=== PATIENT | female | born 1955 | race Caucasian/White ===

== ENCOUNTER → 2018-05-31 15:32 | Outpatient (CLI) | payer BC, SELFPAY ==
--- NOTE | 2018-05-31 15:50 | BD_ITS ---
STUDY: DUAL ENERGY X-RAY ABSORPTIOMETRY / DXA REASON FOR EXAM: Female, 62 years old. The patient is postmenopausal. Loss of height. TECHNIQUE: Bone Mineral Density (BMD) measurements of lumbar spine and bilateral hips were obtained. COMPARISON: None. FINDINGS: Lumbar Spine (L1-L4): g/cm2 (0.907) / T-score (-2.4) / Z-score (-1.0) Findings are suggestive of osteopenia with a high fracture risk. Left Femur Total: g/cm2 (0.885) / T-score (-1.0) / Z-score (0.1) Left Femoral Neck: g/cm2 (0.852) / T-score (-1.3) / Z-score (0.1) Right Femur Total: g/cm2 (0.902) / T-score (-0.8) / Z-score (0.3) Right Femoral Neck: g/cm2 (0.840) / T-score (-1.4) / Z-score (0.0) BD/Dexa Bone Density Study IMPRESSION: The patient is considered osteopenic as outlined below according to World Geremias Organization (WHO) criteria with a high fracture risk. . Reference Information: The T-score is the number of standard deviations above or below the standard which is normal for young adults at their peak bone mineral density. The World Health Organization (WHO) interprets the T-scores as follows: Above -1 Normal bone density Between -1 and -2.5 Osteopenia Equal to / or below -2.5 Osteoporosis As a practical clinical guideline, osteopenia may be graded as follows: Mild -1 through -1.5 Moderate -1.6 through -2.0 Severe -2.1 through -2.4 The Z-score is the number of standard deviations above or below age-matched controls. A Z-score of less than -1.5 would be considered abnormal. References: 1. NIH Osteoporosis and Related Bone Diseases http://www.osteo.org 2. International Society for Clinical Densitometry http://www.iscd.org 3. National Osteoporosis Foundation http://www.nof.org Electronically Signed: Sebastian Ryder MD at 11:00 EST Tel [phone], Service support ,
--- NOTE | 2018-05-31 16:09 | BI_ITS ---
MAMMOGRAPHY - BILATERAL SCREENING REASON FOR EXAM: Female, 62 years old. Routine annual screening examination. PERTINENT HISTORY: Non-contributory. TECHNIQUE: Digital bilateral breast jhoan (3D mammographic acquisition) in the CC and MLO projections. 2-D mediolateral oblique (MLO) and craniocaudad (CC) views of both breasts were obtained. CAD: Full Field Digital Mammography with Computer Added Detection was performed. COMPARISON: No comparison mammograms available at this time. If any prior films become available, an addendum to this report can be generated. FINDINGS: Breast Composition: The breasts are heterogeneously dense, which may obscure small masses. There are no dominant masses or suspicious calcifications. No other significant abnormalities are identified. BI/SCREENING MAMM (CAD), BILAT IMPRESSION: Negative screening mammogram. Yearly followup mammogram recommended. (A) ASSESSMENT CATEGORY: BIRADS Category 1: Negative. A letter regarding these results will be sent to the patient by the facility within 30 days. Approximately 10% of breast cancers are not detected by mammography. A normal mammogram should not delay biopsy of a clinically suspicious abnormality. [id number] Electronically Signed: Sebastian Ryder MD at 11:25 EST Tel [phone], Service support ,
== END ==
PROVIDERS: PCP Internal Medicine; Visit Provider Internal Medicine
DX: Z12.31 Encounter for screening mammogram for malignant neoplasm of breast (principal); Z78.0 Asymptomatic menopausal state
CPT/HCPCS: 77063; 77067; 77080

== ENCOUNTER 2019-04-01 14:01 | Emergency (ER) | payer OTHER, SELFPAY ==
[2019-04-01 14:02] VITALS: PULSE 168; RESP 19; TEMP 36.6; O2SAT 99; BMI 23.1
--- NOTE | 2019-04-01 14:07 | NURSING ---
NO OLD EKGS
--- NOTE | 2019-04-01 14:12 | EKG12_ITS ---
Test Reason : REPEAT Blood Pressure : / mmHG Vent. Rate : 097 BPM Atrial Rate : 097 BPM P-R Int : 172 ms QRS Dur : 082 ms QT Int : 356 ms P-R-T Axes : 075 042 064 degrees QTc Int : 452 ms Normal sinus rhythm Normal ECG Confirmed by ALEXIA CORTEZ, KATIE ([id number]), purchasing expeditor SHAHIDA LEVY ([id number]) on 04/04/2019 10:15:14 AM Referred By: ZOLTAN Confirmed By:KATIE HALE MD
--- NOTE | 2019-04-01 14:14 | RAD_ITS ---
STUDY: X-RAY CHEST REASON FOR EXAM: Female, 63 years old. Palpitations TECHNIQUE: AP COMPARISON: None. FINDINGS: EKG leads project over the chest. The lungs are clear but hyper expanded. There is no demonstrated pleural abnormality. Normal size heart. Normal mediastinum and kriss. Normal visualized pulmonary arteries. Normal visualized aortic arch and descending thoracic aorta. Normal visualized thoracic spine. Normal visualized ribs, clavicles, and shoulders. There is no demonstrated abnormality of the visualized soft tissue structures of the upper abdomen. RAD/Chest 1 View (Portable) IMPRESSION: Nonacute portable x-ray examination of the chest. Electronically Signed: Bartolo Gonzalez MD (Brooks) at 14:31 EDT , Service support ,
[2019-04-01 14:19] LABS: Absolute Lymphocyte Count 2.36 X10^3/uL (0.83-4.51); Absolute Neutrophil Count 5.9 X10^3/uL (2.0-7.7); Basophil# 0.04 X10^3/uL; Basophil% 0.4 % (0-1); Eosinophil# 0.16 X10^3/uL; Eosinophils% 1.7 % (0-5); Hematocrit 48.4 % (37-47); Hemoglobin 15.9 g/dL (12.0-15.0); Lymphocyte # 2.36 X10^3/ul (4.0); Lymphocyte % 25.3 % (19-41); Mean Corp Hgb Conc 32.9 g/dL (32-36); Mean Corpuscular Hgb 30.1 pg (27.0-32.0); Mean Corpuscular Volume 91.7 fL (81-99); Mean Platelet Vol. 9.8 fl (6.2-12.0); Monocyte# 0.87 X10^3/uL; Monocyte% 9.3 % (0-10); NRBC Flagged by Analyzer 0 % (0-5); Neutrophil # 5.86 X10^3/uL (2.7-7.7); Platelet Count 272 K/mm3 (150-450); RBC Distribution Width CV 12.4 % (11.6-14.6); RBC Distribution Width SD 41.8 fl (35.1-43.9); Red Blood Count 5.28 M/mm3 (4.2-5.4); White Blood Count 9.3 K/mm3 (4.4-11.0)
--- NOTE | 2019-04-01 14:26 | ED.RN ---
1410- DR. CROCKER PROVIDED A VALSALVA MANEUVER TO LOWER HR NATURALLY. PT HAD A PAUSE AND THEN HAD IRREGULAR BEATS WITH A RETURN OF SR HR AT A RATE OF 104
[2019-04-01 15:03] VITALS: BP 118/76; PULSE 95; RESP 16; O2SAT 98
[2019-04-01 15:03] LABS: Anion Gap 8 (5-15); BUN 19 mg/dL (7-18); BUN/Creat Ratio 21.5 RATIO (10-20); Calcium,Total 9.3 mg/dL (8.5-10.1); Chloride 105 mmol/L (98-107); Creatinine, Serum 0.88 mg/dL (0.55-1.02); EST Glomerular Filtration Rate 68 mL/min (>60); Est Glom Filt Rate - Afr Amer 83 mL/min (>60); Estimated Creatinine Clearance 58.12 ml/min; Glucose 109 mg/dL (74-106); Magnesium 2.1 mg/dL (1.6-2.6); Sodium Level 137 mmol/L (136-145); Thyroid Stim Hormone (TSH) 3.29 uIU/mL (0.358-3.74)
--- NOTE | 2019-04-01 15:43 | ED.DCSUM_ITS ---
- ER Visit Summary Date of Service: 04/01/19 Chief Complaint: Palpitations History of Present Illness: The patient is a 63 F who is working in her garden for the last hour has felt her heart racing. She tells me that when she was younger she was told she had a murmur. Later in life she had an echocardiogram that was normal. She tells me she saw a events administrative assistant at [facility] in the past and was told not to worry about her murmur. She is otherwise a very healthy individual. She is physically fit. She tells me that she has had palpitations for 55 years. She states that typically they have been short-lived lasting seconds to possibly 10 minutes. Sometimes she may go 6 months without an episode sometimes it may be twice in a week. She states that the past few years she is noticed that they have been more frequently. She is never worn a Holter monitor. Physical Examination: Afebrile heart rate 178 blood pressure stable Gen: Well-nourished well-developed Head: Normocephalic atraumatic Eyes: Perrl EOMI ENT: TMs clear no rhinorrhea moist mucous membranes Neck: Supple no lymphadenopathy no JVD nontender CVS: Regular rate tachycardic rhythm no murmurs normal S1-S2 Respiratory: No distress clear to auscultation bilaterally chest nontender Abdomen: Soft nontender nondistended normal bowel sounds no masses Back: Nontender Extremity: Nontender no edema Skin: Normal color no rash Neuro: alert orientated ?3 CN II-XII intact normal strength sensation reflexes gait cerebellar Psych: Normal affect normal mood Test Results: EKG demonstrated SVT rhythm at a rate of 172. Repeat EKG shows a sinus rhythm at a rate of 97. Basic labs including magnesium and TSH and troponin were negative. Emergency Department Course and Treatment: Using a modified Valsalva technique using a syringe the patient converted to sinus rhythm. Spoke with cardiology recommend starting the patient on Cardizem 120 she will follow-up with cardiology return if worsening or concerns. Impression: 1. Ventricular tachycardia 2. Modified Valsalva cardioversion This note was generated with [employer] software. It may contain incorrect words, spelling, and punctuation that were not noted in review of the chart prior to signing ED Disposition - Plan for ED Patient: Disposition: Home or Assisted Living Instructions: Pat (P.A.T.) Prescriptions: Diltiazem CD [Cardizem CD] 120 mg PO DAILY #30 cap Prescription Printed Referrals: Owen Lui MD [STAFF PHYSICIAN] - (call to arrange follow up with cardiology)
[2019-04-01 15:56] VITALS: BP 107/67; PULSE 97; RESP 18; O2SAT 97
== END 2019-04-01 15:57 | disposition home or self-care (01) ==
PROVIDERS: Emergency Provider Emergency Medicine; Family Provider Internal Medicine; PCP Internal Medicine
DX: I47.1 Supraventricular tachycardia (principal)
CPT/HCPCS: 71045; 80048; 83735; 84443; 84484; 85025; 93005; 99285; J7030; A4216

== ENCOUNTER → 2019-09-14 12:53 | Outpatient (CLI) | payer MEDICARE, OTHER, SELFPAY ==
[2019-09-07 14:13] VITALS: BMI 21.6
--- NOTE | 2019-09-14 12:54 | ECHOD_ITS ---
Reason For Study: ARRHYTHMIA Procedure This was a 2D Doppler, Color Flow transthoracic echocardiogram. The exam was of adequate technical quality. Exam performed in department. Left Ventricle Normal LV size. Left ventricular systolic function is normal. The estimated ejection fraction is 65 %. No evidence for diastolic dysfunction. No regional wall motion abnormalities noted. Right Ventricle Normal RV size. Normal systolic function. Atria Normal left atrium. Normal right atrium. No doppler evidence for ASD. Mitral Valve There is no mitral annular calcification. Normal mitral valve. Trivial mitral valve insufficiency. Tricuspid Valve Normal tricuspid valve. Trivial tricuspid valve insufficiency. Right ventricular systolic pressure estimated to be 22 mmHg. Aortic Valve Trisinus/trileaflet aortic valve. Mild diffuse aortic valve thickening. Moderate focal aortic valve calcification. Mild to moderate aortic stenosis. Pulmonic Valve The pulmonic valve is not well visualized. Trivial pulmonic valve insufficiency. Great Vessels Normal sized aortic root. Pericardium/Pleural No pericardial effusion. MMode/2D Measurements & Calculations LVIDd: 4.1 cm IVSd: 0.75 cm LVOT diam: 1.8 cm LVIDs: 2.9 cm LVPWd: 0.72 cm LVOT area: 2.5 cm2 RVDd: 3.1 cm FS: 30.7 % Ao root diam: 3.4 cm LAV(MOD-bp): 38.9 ml LA A4 area: 14.4 cm2 LAV(MOD-bp) Indexed: 23.5 ml/m2 LAV(MOD-sp2): 37.7 ml LAV(MOD-sp4): 36.9 ml LA dimension(2D): 3.7 cm RA A4 area: 11.9 cm2 Time Measurements MV dec time: 0.21 sec Doppler Measurements & Calculations MV E max jw: 62.6 cm/sec Lat Peak E' Jw: 13.4 cm/sec Med Peak E' Jw: 8.5 cm/sec MV A max jw: 56.4 cm/sec E/E' lat: 4.7 E/E' med: 7.4 MV E/A: 1.1 Ao V2 max: 187.8 cm/sec LV V1 max: 108.6 cm/sec PA V2 max: 107.7 cm/sec Ao max P.1 mmHg LV V1 max P.7 mmHg JU(V,D): 1.5 cm2 PI end-d jw: 105.2 cm/sec TR max jw: 215.9 cm/sec TR max P.6 mmHg Interpretation Summary Left ventricular systolic function is normal. The estimated ejection fraction is 65 %. Trivial mitral valve insufficiency. Trivial tricuspid valve insufficiency. Mild to moderate aortic stenosis. Trivial pulmonic valve insufficiency. Right ventricular systolic pressure estimated to be 22 mmHg. No evidence for diastolic dysfunction. Ordering Physician: Michele Bryson Referring Physician: ALEIDA CARBALLO Performed By: Alisia Hopkins, RDCS, RVT
== END ==
PROVIDERS: PCP Internal Medicine; Referring Provider Internal Medicine Cardiovascular Disease; Visit Provider Internal Medicine Cardiovascular Disease
DX: I47.1 Supraventricular tachycardia (principal)
CPT/HCPCS: 93306

== ENCOUNTER → 2020-05-14 15:17 | Outpatient (CLI) | payer MEDICARE, OTHER, SELFPAY ==
[2020-02-29 10:33] VITALS: BMI 21.7
--- NOTE | 2020-05-14 15:20 | BI_ITS ---
MAMMOGRAPHY - BILATERAL SCREENING REASON FOR EXAM: Female, 64 years old. Routine annual screening examination. PERTINENT HISTORY: Non-contributory. TECHNIQUE: Digital bilateral breast sandra (3D mammographic acquisition) in the CC and MLO projections. 2-D mediolateral oblique (MLO) and craniocaudad (CC) views of both breasts were obtained. CAD: Full Field Digital Mammography with Computer Added Detection was performed. COMPARISON: Comparison is made with prior study dated 05/31/2018. FINDINGS: Breast Composition: The breasts are extremely dense, which lowers the sensitivity of mammography. There are no dominant masses or suspicious calcifications. No other significant abnormalities are identified. There has been no significant change since the prior study. BI/SCREEN MAMM (CAD) W/SANDRA BILAT IMPRESSION: Stable bilateral screening mammogram. Yearly follow-up mammogram recommended. (A) ASSESSMENT CATEGORY: BIRADS Category 1: Negative. A letter regarding these results will be sent to the patient by the facility within 30 days. Approximately 10% of breast cancers are not detected by mammography. A normal mammogram should not delay biopsy of a clinically suspicious abnormality. [id number] Electronically Signed: Sebastian Ryder, at 8:21 EST , Service support ,
--- NOTE | 2020-05-14 15:22 | BD_ITS ---
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 COMPARISON: Comparison is made with prior study dated 05/31/2019. FINDINGS: Lumbar Spine (L1-L4): g/cm2 (0.893) / T-score (-2.4) / Z-score (-0.8) Findings are suggestive of osteopenia with a high fracture risk. Left Femur Total: g/cm2 (0.848) / T-score (-1.3) / Z-score (0.0) Left Femoral Neck: g/cm2 (0.820) / T-score (-1.6) / Z-score (-0.1) Right Femur Total: g/cm2 (0.867) / T-score (-1.1) / Z-score (0.1) Right Femoral Neck: g/cm2 (0.828) / T-score (-1.5) / Z-score (0.0) The T-Scores on the most recent prior examination were: Lumbar Spine (L1-L4): There has been worsening of bone density since the previous examination. Left Femur Total: which represents a worsening of 4.2%. Right Femur Total: which represents a worsening of 3.9%. BD/Dexa Bone Density Study IMPRESSION: The patient is considered osteopenic as outlined below according to World Geremias Organization (WHO) criteria with a high fracture risk. There has been worsening of bone density since the previous examination. Reference Information: The T-score is the number of standard deviations above or below the standard which is normal for young adults at their peak bone mineral density. The World Health Organization (WHO) interprets the T-scores as follows: Above -1 Normal bone density Between -1 and -2.5 Osteopenia Equal to / or below -2.5 Osteoporosis As a practical clinical guideline, osteopenia may be graded as follows: Mild -1 through -1.5 Moderate -1.6 through -2.0 Severe -2.1 through -2.4 The Z-score is the number of standard deviations above or below age-matched controls. A Z-score of less than -1.5 would be considered abnormal. References: 1. NIH Osteoporosis and Related Bone Diseases www osteo.org 2. International Society for Clinical Densitometry www iscd.org 3. National Osteoporosis Foundation www nof.org Electronically Signed: Sebastian Ryder, at 10:55 EST , Service support ,
== END ==
PROVIDERS: PCP Internal Medicine; Referring Provider Internal Medicine; Visit Provider Internal Medicine
DX: Z12.31 Encounter for screening mammogram for malignant neoplasm of breast (principal); Z78.0 Asymptomatic menopausal state
CPT/HCPCS: 77063; 77067; 77080

== ENCOUNTER → 2021-05-16 15:02 | Outpatient (CLI) | payer MEDICARE, OTHER, SELFPAY ==
--- NOTE | 2021-05-16 15:51 | BI_ITS ---
MAMMOGRAPHY - BILATERAL SCREENING 3-D TOMOSYNTHESIS REASON FOR EXAM: Female, 65 years old. Routine screening PERTINENT HISTORY: No significant family history. TECHNIQUE: 2-D mammograms and 3-D Tomosynthesis of the breast (s) were performed. CAD was performed. COMPARISON: 07/14/2019 FINDINGS: The breast composition is heterogeneously dense that can obscure small breast masses. Scattered benign calcifications are seen. No dense spiculated masses or suspicious microcalcifications are identified. No architectural distortion is identified. There is no skin thickening or retraction. There has been no significant change since the prior study. BI/SCRN MAMM (CAD)W/SANDRA BILAT IMPRESSION: No mammographic signs of malignancy. Routine yearly mammograms recommended. ASSESSMENT CATEGORY: BIRADS Category 2: Benign. A letter regarding these results will be sent to the patient by the facility within 30 days. FOLLOW UP RECOMMENDATION: Yearly follow up mammogram recommended. (A) Approximately 10% of breast cancers are not detected by mammography. A normal mammogram should not delay biopsy of a clinically suspicious abnormality. Electronically Signed: Simone Chang MD at 12:14 EST , Service support ,
== END ==
PROVIDERS: PCP Internal Medicine; Referring Provider Internal Medicine; Visit Provider Internal Medicine
DX: Z12.31 Encounter for screening mammogram for malignant neoplasm of breast (principal)
CPT/HCPCS: 77063; 77067

== ENCOUNTER → 2022-05-12 | Outpatient (CLI) | payer MEDICARE, OTHER, SELFPAY ==
--- NOTE | 2022-05-12 14:58 | ECHOD_ITS ---
Reason For Study: AORTIC VALVE STENOSIS Procedure This was a 2D Doppler, Color Flow transthoracic echocardiogram. The study was technically difficult. Exam performed in department. Left Ventricle Normal LV size. Left ventricular systolic function is normal. The estimated ejection fraction is 65 %. No evidence for diastolic dysfunction. No regional wall motion abnormalities noted. Right Ventricle Normal RV size. Normal systolic function. Atria Normal left atrium. Normal right atrium. No doppler evidence for ASD. Mitral Valve There is no mitral annular calcification. Normal mitral valve. Trivial mitral valve insufficiency. Tricuspid Valve Normal tricuspid valve. Mild tricuspid valve insufficiency. Right ventricular systolic pressure estimated to be 23 mmHg. Aortic Valve Trisinus/trileaflet aortic valve. Moderate focal aortic valve calcification. Mild aortic stenosis. Pulmonic Valve The pulmonic valve is not well visualized. Mild (1+) eccentric pulmonic valve insufficiency. Great Vessels Normal sized aortic root. Pericardium/Pleural No pericardial effusion. MMode/2D Measurements & Calculations RVDd: 2.9 cm LVOT diam: 1.9 cm Ao root diam: 2.5 cm LVOT area: 2.7 cm2 LAV(MOD-bp): 43.1 ml LA dimension(2D): 3.1 cm LA A4 area: 14.5 cm2 LAV(MOD-bp) Indexed: 25.9 ml/m2 LAV(MOD-sp2): 41.9 ml LAV(MOD-sp4): 35.8 ml RA A4 area: 11.6 cm2 Time Measurements MV dec time: 0.20 sec Doppler Measurements & Calculations MV E max jw: 81.7 cm/sec Lat Peak E' Jw: 15.5 cm/sec Med Peak E' Jw: 9.3 cm/sec MV A max jw: 59.6 cm/sec E/E' lat: 5.3 E/E' med: 8.8 MV E/A: 1.4 Ao V2 max: 204.1 cm/sec LV V1 max: 102.2 cm/sec MV dec slope: 412.6 cm/sec2 Ao max P.3 mmHg LV V1 max P.2 mmHg Ao V2 mean: 133.2 cm/sec LV V1 mean P.6 mmHg Ao mean P.0 mmHg LV V1 mean: 78.2 cm/sec Ao V2 VTI: 40.4 cm LV V1 VTI: 24.8 cm JU(I,D): 1.7 cm2 JU(V,D): 1.3 cm2 SV(LVOT): 66.7 ml PA V2 max: 131.0 cm/sec PI dec slope: 181.6 cm/sec2 TR max jw: 222.4 cm/sec TR max P.8 mmHg ECHO/Echo Complete Interpretation Summary The study was technically difficult. Left ventricular systolic function is normal. The estimated ejection fraction is 65 %. Trivial mitral valve insufficiency. Mild tricuspid valve insufficiency. Moderate focal aortic valve calcification. Mild aortic stenosis. Mild (1+) eccentric pulmonic valve insufficiency. Right ventricular systolic pressure estimated to be 23 mmHg. No evidence for diastolic dysfunction. Ordering Physician: Michele rByson Referring Physician: Maia Basilio Performed By: Betty Gold, RDCS, RVT
== END | disposition home or self-care (01) ==
LOC: CVS 14:57
PROVIDERS: PCP Internal Medicine; Referring Provider Internal Medicine Cardiovascular Disease; Visit Provider Internal Medicine Cardiovascular Disease
DX: I47.1 Supraventricular tachycardia (principal); I06.2 Rheumatic aortic stenosis with insufficiency; R01.1 Cardiac murmur, unspecified; E78.2 Mixed hyperlipidemia
CPT/HCPCS: 93306

== ENCOUNTER → 2023-09-09 | Outpatient (CLI) | payer MEDICARE, OTHER, SELFPAY ==
--- NOTE | 2023-09-09 12:40 | BD_ITS ---
STUDY: DUAL ENERGY X-RAY ABSORPTIOMETRY / DXA REASON FOR EXAM: Female, 68 years old. [id number] TECHNIQUE: Bone Mineral Density (BMD) measurements of lumbar spine and bilateral hips were obtained. COMPARISON: Comparison is made with prior study dated May 14, 2020. FINDINGS: Lumbar Spine (L1-L4): g/cm2 (0.791) / T-score (-2.6) / Z-score (-0.5) Findings are suggestive of osteoporosis with a high fracture risk. Left Femur Total: g/cm2 (0.798) / T-score (-1.2) / Z-score (0.3) Left Femoral Neck: g/cm2 (0.633) / T-score (-1.9) / Z-score (-0.2) Right Femur Total: g/cm2 (0.841) / T-score (-0.8) / Z-score (0.6) Right Femoral Neck: g/cm2 (0.656) / T-score (-1.7) / Z-score (0.0) The T-Scores on the most recent prior examination were: Lumbar Spine (L1-L4): There has been improvement of bone density since the previous examination. Left Femur Total: which represents an improvement of 1.4%. Right Femur Total: which represents an improvement of 4.4%. BD/Dexa Bone Density Study IMPRESSION: The patient is considered osteoporotic as outlined below according to World Geremias Organization (WHO) criteria with a high fracture risk. There has been worsening of bone density since the previous examination. Reference Information: The T-score is the number of standard deviations above or below the standard which is normal for young adults at their peak bone mineral density. The World Health Organization (WHO) interprets the T-scores as follows: Above -1 Normal bone density Between -1 and -2.5 Osteopenia Equal to / or below -2.5 Osteoporosis As a practical clinical guideline, osteopenia may be graded as follows: Mild -1 through -1.5 Moderate -1.6 through -2.0 Severe -2.1 through -2.4 The Z-score is the number of standard deviations above or below age-matched controls. A Z-score of less than -1.5 would be considered abnormal. References: 1. NIH Osteoporosis and Related Bone Diseases www osteo.org 2. International Society for Clinical Densitometry www iscd.org 3. National Osteoporosis Foundation www nof.org Electronically Signed: Sebastian Ryder MD at 11:21 EDT ,
--- NOTE | 2023-09-09 12:40 | BI_ITS ---
MAMMOGRAPHY - BILATERAL SCREENING REASON FOR EXAM: Female, 68 years old. Routine annual screening examination. PERTINENT HISTORY: Non-contributory. TECHNIQUE: Digital bilateral breast sandra (3D mammographic acquisition) in the CC and MLO projections. 2-D mediolateral oblique (MLO) and craniocaudad (CC) views of both breasts were obtained. CAD: Full Field Digital Mammography with Computer Added Detection was performed. COMPARISON: Comparison is made with prior study dated May 16, 2021 and May 14, 2020. FINDINGS: Breast Composition: The breasts are extremely dense, which lowers the sensitivity of mammography. There are no dominant masses or suspicious calcifications. No other significant abnormalities are identified. There has been no significant change since the prior study. BI/SCRN MAMM (CAD)W/SANDRA BILAT IMPRESSION: Stable bilateral screening mammogram. Yearly follow-up mammogram recommended. (A) ASSESSMENT CATEGORY: BIRADS Category 1: Negative. A letter regarding these results will be sent to the patient by the facility within 30 days. Approximately 10% of breast cancers are not detected by mammography. A normal mammogram should not delay biopsy of a clinically suspicious abnormality. [id number] Electronically Signed: Sebastian Ryder MD at 15:45 EDT ,
== END | disposition home or self-care (01) ==
PROVIDERS: PCP Internal Medicine; Referring Provider Internal Medicine; Visit Provider Internal Medicine
DX: Z12.31 Encounter for screening mammogram for malignant neoplasm of breast (principal); Z78.0 Asymptomatic menopausal state
CPT/HCPCS: 77063; 77067; 77080

== ENCOUNTER → 2023-10-12 | Outpatient (CLI) | payer MEDICARE, OTHER, SELFPAY ==
--- NOTE | 2023-10-12 13:53 | ECHOD_ITS ---
Reason For Study: AORTIC STENOSIS Procedure This was a 2D Doppler, Color Flow transthoracic echocardiogram. The study was technically difficult. Exam performed in department. Left Ventricle Normal LV size. Left ventricular systolic function is normal. The left ventricular ejection fraction is 65 %. Stage 2 diastolic dysfunction. No regional wall motion abnormalities noted. Right Ventricle Normal RV size. Normal systolic function. Atria Normal left atrium. Normal right atrium. Mitral Valve Normal mitral valve. Tricuspid Valve Normal tricuspid valve. Mild tricuspid valve insufficiency. Aortic Valve Trisinus/trileaflet aortic valve. Mild focal aortic valve calcification. Peak aortic valve gradient 21 mmHg. Mean aortic valve gradient 12 mmHg. Mild aortic stenosis. Great Vessels Normal aortic root. The pulmonary artery is normal size. Normal inferior vena cava. Pericardium/Pleural No pericardial effusion. MMode/2D Measurements & Calculations LVIDd: 4.1 cm IVSd: 0.87 cm LVOT diam: 1.9 cm LVIDs: 2.5 cm LVPWd: 0.83 cm LVOT area: 2.8 cm2 RVDd: 3.4 cm FS: 39.3 % Ao root diam: 2.5 cm LAV(MOD-bp): 43.1 ml LVAd ap4: 22.2 cm2 LAV(MOD-bp) Indexed: 26.0 ml/m2 LVLd ap4: 7.2 cm LAV(MOD-sp2): 51.4 ml EDV(MOD-sp4): 54.5 ml LAV(MOD-sp4): 37.3 ml EDV(sp4-el): 57.8 ml LVAs ap4: 10.0 cm2 LVLs ap4: 5.6 cm ESV(MOD-sp4): 15.6 ml ESV(sp4-el): 15.0 ml EF(MOD-sp4): 71.3 % EF(sp4-el): 74.1 % SV(MOD-sp4): 38.9 ml SV(MOD-sp2): 30.5 ml LVAd ap2: 19.2 cm2 LVLd ap2: 7.0 cm EDV(MOD-sp2): 46.0 ml EDV(sp2-el): 44.8 ml LVAs ap2: 10.0 cm2 LVLs ap2: 5.5 cm ESV(MOD-sp2): 15.5 ml ESV(sp2-el): 15.3 ml EF(MOD-sp2): 66.3 % SV(sp4-el): 42.8 ml LA A4 area: 15.2 cm2 LA dimension(2D): 3.4 cm TAPSE: 1.9 cm RA A4 area: 11.4 cm2 Time Measurements MV dec time: 0.16 sec Doppler Measurements & Calculations MV E max jw: 80.0 cm/sec Lat Peak E' Jw: 11.2 cm/sec Med Peak E' Jw: 14.5 cm/sec MV A max jw: 62.6 cm/sec E/E' lat: 7.2 E/E' med: 5.5 MV E/A: 1.3 MV dec slope: 487.4 cm/sec2 Ao V2 max: 228.6 cm/sec LV V1 max: 138.1 cm/sec Ao max P.0 mmHg LV V1 max P.6 mmHg Ao V2 mean: 159.2 cm/sec LV V1 mean P.7 mmHg Ao mean P.5 mmHg LV V1 mean: 103.8 cm/sec Ao V2 VTI: 53.3 cm LV V1 VTI: 35.6 cm AV (velocity ratio): 0.67 JU(I,D): 1.9 cm2 JU(V,D): 1.7 cm2 SV(LVOT): 100.6 ml PA V2 max: 106.7 cm/sec TR max jw: 216.9 cm/sec PA max PG (full): 2.2 mmHg TR max P.8 mmHg ECHO/Echo Complete Interpretation Summary Normal LV size. Left ventricular systolic function is normal. The left ventricular ejection fraction is 65 %. Stage 2 diastolic dysfunction. Mild tricuspid valve insufficiency. Mean aortic valve gradient 12 mmHg. Mild aortic stenosis. Ordering Physician: Tashi Galeana Referring Physician: Maia Basilio M.D. Performed By: Merry Laguerre RDCS
== END | disposition home or self-care (01) ==
LOC: CVS 13:48
PROVIDERS: PCP Internal Medicine; Referring Provider Internal Medicine Cardiovascular Disease; Visit Provider Internal Medicine Cardiovascular Disease
DX: I06.2 Rheumatic aortic stenosis with insufficiency (principal)
CPT/HCPCS: 93306

== ENCOUNTER → 2024-09-20 | Outpatient (CLI) | payer MEDICARE, OTHER, SELFPAY ==
--- NOTE | 2024-09-20 13:15 | BI_ITS ---
EXAM: SCRN MAMM (CAD)W/SANDRA BILAT DATE: 09/20/2024 CLINICAL HISTORY: F, Age 69 y/o , SCRN MAMM (CAD)W/SANDRA BILAT BREAST CANCER RISK ASSESSMENT: Does not appear to have been calculated. TECHNIQUE: Bilateral screening digital breast tomosynthesis with 2D and 3D images. Computer aided detection. COMPARISON: Prior exam(s) dated 09/09/2023. FINDINGS: TISSUE DENSITY: The breast tissue is heterogenously dense, which may obscure small masses. Bilateral Breast Mammographic Findings: No significant masses, calcifications or other abnormalities are identified. Benign-appearing round calcifications are seen in both breasts. BI/SCRN MAMM (CAD)W/SANDRA BILAT IMPRESSION: Right Breast: BIRADS 2 BENIGN FINDING. Left Breast: BIRADS 2 BENIGN FINDING. OVERALL FINAL ASSESSMENT: BIRADS 2 BENIGN FINDING RECOMMENDATION: Routine annual follow-up in 1 Year A letter with findings and recommendations will be mailed to the patient. Reading Location: [id number]
== END | disposition home or self-care (01) ==
LOC: OPBI 13:04
PROVIDERS: PCP Internal Medicine; Referring Provider Internal Medicine; Visit Provider Internal Medicine
DX: Z12.31 Encounter for screening mammogram for malignant neoplasm of breast (principal)
CPT/HCPCS: 77063; 77067

== ENCOUNTER → 2025-06-14 | Outpatient (CLI) | payer MEDICARE, OTHER, SELFPAY ==
[2025-06-14 15:54] LABS: Hematocrit 44.3 % (37-47); Hemoglobin 14.4 g/dL (12.0-15.0); Immature Granulocytes Count 0.010 X10^3/uL (0.0-0.0); Mean Corp Hgb Conc 32.5 g/dL (32-36); Mean Corpuscular Volume 93.3 fL (81-99); Mean Platelet Vol. 10.5 fl (6.2-12.0); NRBC Flagged by Analyzer 0 % (0-5); Platelet Count 284 K/mm3 (150-450); RBC Distribution Width CV 12.7 % (11.6-14.6); RBC Distribution Width SD 43.4 fl (35.1-43.9); Red Blood Count 4.75 M/mm3 (4.2-5.4); White Blood Count 5.7 K/mm3 (4.4-11.0)
[2025-06-14 16:17] LABS: AST(SGOT) 29 U/L (<=31); Alanine Aminotransfer ALT/SGPT 27 U/L (<=34); Albumin, Serum 4.4 g/dL (3.4-4.8); Alkaline Phosphatase 48 U/L (35-104); Anion Gap 10 (5-15); BUN 12 mg/dL (4-19); BUN/Creat Ratio 15.9 RATIO (10-20); Calcium,Total 9.4 mg/dL (7.6-11.0); Carbon Dioxide 26.0 mmol/L (21.0-32.0); Chloride 103 mmol/L (98-108); Cholesterol 181 mg/dL (<=200); Globulin 2.7 g/dL (2.2-4.2); Glucose 77 mg/dL (70-99); Hepatitis C Antibody Nonreactive (Nonreactive); Low Density Lipoprotein Calc. 104 mg/dL; Potassium 4.0 mmol/L (3.3-5.1); Triglycerides 57 mg/dL; Very Low Density Lipoprotein 11 mg/dL (5-40); cholesterol:hdl ratio screen 2.74
[2025-06-14 16:18] LABS: CRP < 3.00 mg/L (0.0-3.0)
[2025-06-18 12:08] LABS: Anti-Chromatin <0.2 AI (0.0-0.9); Anti-Jo <0.2 AI (0.0-0.9); Anti-dsDNA Ab <1 IU/mL (0-9); SJOGREN'S Anti-SS-A test 4.3 AI (0.0-0.9); SJOGREN'S Anti-SS-B test < 0.2 AI (0.0-0.9)
== END | disposition home or self-care (01) ==
LOC: CIMLAB 14:08
PROVIDERS: PCP Internal Medicine; Referring Provider Internal Medicine; Visit Provider Internal Medicine
DX: M25.50 Pain in unspecified joint (principal); E78.00 Pure hypercholesterolemia, unspecified; I10 Essential (primary) hypertension
CPT/HCPCS: 36415; 80053; 80061; 84443; 85025; 85652; 86140; 86200; 86225; 86235; 86431; 86803